=== PATIENT | female | born 1960 | race Caucasian/White ===

== ENCOUNTER 2017-05-23 00:41 | Emergency (ER) | payer OTHER ==
[~2017-05-23] VITALS: Ht 175.3 cm; Wt 75.4 kg
[~2017-05-23 00:41] MED LIST: ADDERALL30 MG PO; CYMBALTA30 MG PO; CYMBALTA60 MG PO; EFFEXOR37.5 MG PO; EPITOL200 MG PO; VALTREX50 MG/ML PO
[2017-05-23 02:08] LABS: HEMATOCRIT 42.6 % (36.0-46.0); MCH 32.5 PG (29.0-34.0); MCHC 34.7 G/DL (30.0-36.0); MCV 93.4 FL (83-99); MEAN PLAT.VOLUME 8.7 uM^3 (9.5-12.4); PLATELET COUNT 165 K/uL (156-360); RBC DIS.WIDTH-CV 12.4 % (11.8-14.6); RED BLOOD COUNT 4.56 M/uL (3.80-5.20); WHITE BLOOD COUNT 7.5 K/uL (4.1-10.2)
[2017-05-23 02:13] LABS: CHLORIDE 104 mEq/L (99-109); POTASSIUM 3.7 mEq/L (3.7-5.4); SODIUM 140 mEq/L (136-147)
[2017-05-23 02:15] LABS: GLUCOSE 92 mg/dL (70-99)
[2017-05-23 02:16] LABS: ANION GAP 14 MEQ/L (2-14)
[2017-05-23 02:18] LABS: SERUM ETHYL ALCOHOL 350 mg/dL
[2017-05-23 02:19] LABS: GFR ESTIMATE (CALCULATED) > 59 mL/min/
[2017-05-23 02:20] LABS: UREA NITROGEN (BUN) 17 mg/dL (9-23)
[2017-05-23 02:33] LABS: ADD MIUA? YES; BILIRUBIN NEGATIVE; BLOOD MODERATE; COLOR YELLOW ((YELLOW)); GLUCOSE (STRIP) NEGATIVE; KETONES 5; LEUKOCYTES TRACE; NITRITE NEGATIVE; PROTEIN (STRIP) 30; UROBILINOGEN 0.2 MG/DL (0.2-1.0)
[2017-05-23 02:42] LABS: AMPHETAMINE PRESUMPTIVE POSITIVE (500 ng/mL); BACTERIA RARE /HPF; BARBITURATES NEGATIVE (200 ng/mL); BENZODIAZEPINES NEGATIVE (150 ng/mL); COCAINE NEGATIVE (150 ng/mL); EPITHELIAL CELLS RARE /HPF; METHADONE NEGATIVE (200 ng/mL); METHAMPHETAMINE NEGATIVE (500 ng/mL); MUCUS TRACE /LPF; OPIATES (MORPHINE) NEGATIVE (100 ng/mL); OXYCODONE NEGATIVE (100 ng/mL); PHENCYCLIDINE NEGATIVE (25 ng/mL); PROPOXYPHENE NEGATIVE (300 ng/mL); THC CANNABINOIDS NEGATIVE (50 ng/mL); TRICYCLIC ANTIDEPRESSANTS NEGATIVE (300 ng/mL); UCUL ADDED? NO; WHITE BLOOD CELLS 0-5 /HPF (0-5)
[2017-05-23 02:43] LABS: ADD MEDTOX COMMENT Y; INTERNAL CONTROLS VALID? YES
[2017-05-23 04:05] VITALS: BP 132/88
== END 2017-05-23 04:16 | disposition left against medical advice (07) ==
LOC: EME 00:41
PROVIDERS: Emergency Medicine
DX: F10.129 Alcohol abuse with intoxication, unspecified (principal); F19.10 Other psychoactive substance abuse, uncomplicated; R04.0 Epistaxis; Y90.8 Blood alcohol level of 240 mg/100 ml or more; Z85.820 Personal history of malignant melanoma of skin; Z87.891 Personal history of nicotine dependence
CPT/HCPCS: 80048; 81003; 84999; 85027; 99281; 99284; G0480

== ENCOUNTER 2017-09-18 19:21 | Emergency (ER) | payer OTHER ==
[~2017-09-18] VITALS: Ht 175.3 cm; Wt 75.0 kg
[2017-09-18 20:06] LABS: HEMATOCRIT 41.3 % (36.0-46.0); HEMOGLOBIN 14.1 G/DL (11.9-15.5); MCH 32.6 PG (29.0-34.0); MCHC 34.1 G/DL (30.0-36.0); MCV 95.6 FL (83-99); PLATELET COUNT 232 K/uL (156-360); RBC DIS.WIDTH-CV 12.6 % (11.8-14.6); RBC DIS.WIDTH-SD 44.5 % (39-53); RED BLOOD COUNT 4.32 M/uL (3.80-5.20)
[2017-09-18 20:16] LABS: ALBUMIN 4.1 g/dL (3.2-4.8); CHLORIDE 109 mEq/L (99-109); POTASSIUM 4.2 mEq/L (3.7-5.4); SODIUM 143 mEq/L (136-147)
[2017-09-18 20:19] LABS: GLUCOSE 87 mg/dL (70-99); TOTAL PROTEIN 7.3 g/dL (6.4-8.3)
[2017-09-18 20:20] LABS: TOTAL BILIRUBIN 0.5 mg/dL (0.0-1.0)
[2017-09-18 20:22] LABS: ALKALINE PHOSPHATASE 87 IU/L (3-129); CREATININE 0.7 mg/dL (0.6-1.3); GFR ESTIMATE (CALCULATED) > 59 mL/min/; SERUM ETHYL ALCOHOL 367 mg/dL
[2017-09-18 20:23] LABS: UREA NITROGEN (BUN) 18 mg/dL (9-23)
[2017-09-18 20:24] LABS: AST (GOT) 43 IU/L (2-34)
[2017-09-18 20:25] LABS: ALT (GPT) 25 IU/L (3-49)
[2017-09-18 20:26] LABS: TROP-I INTERPRETATION NEGATIVE; TROPONIN-I < 0.01 ng/mL (0.0-0.30)
[2017-09-19 07:33] VITALS: BP 110/58
== END 2017-09-19 07:34 | disposition home or self-care (01) ==
LOC: EME 19:21
PROVIDERS: Emergency Medicine
DX: F10.121 Alcohol abuse with intoxication delirium (principal); Z78.1 Physical restraint status; Z87.891 Personal history of nicotine dependence; Z85.820 Personal history of malignant melanoma of skin; Z88.5 Allergy status to narcotic agent
CPT/HCPCS: 80053; 84484; 85027; 93005; 99281; 99285; G0480; J1630; J2060

== ENCOUNTER 2018-03-09 10:24 | Emergency (ER) | payer OTHER ==
[~2018-03-09] VITALS: Ht 175.3 cm; Wt 68.1 kg
[2018-03-09 10:52] LABS: HEMATOCRIT 42.5 % (36.0-46.0); HEMOGLOBIN 14.8 G/DL (11.9-15.5); MCH 33.3 PG (29.0-34.0); MCHC 34.8 G/DL (30.0-36.0); MCV 95.7 FL (83-99); PLATELET COUNT 234 K/uL (156-360); RBC DIS.WIDTH-CV 12.6 % (11.8-14.6); RBC DIS.WIDTH-SD 45.1 % (39-53); RED BLOOD COUNT 4.44 M/uL (3.80-5.20); WHITE BLOOD COUNT 11.3 K/uL (4.1-10.2)
[2018-03-09 11:01] LABS: CHLORIDE 113 mEq/L (99-109); POTASSIUM 4.2 mEq/L (3.7-5.4); SODIUM 148 mEq/L (136-147)
[2018-03-09 11:02] LABS: GLUCOSE 97 mg/dL (70-99)
[2018-03-09 11:06] LABS: CREATININE 0.7 mg/dL (0.6-1.3); GFR ESTIMATE (CALCULATED) > 59 mL/min/; SERUM ETHYL ALCOHOL 333 mg/dL
[2018-03-09 11:07] LABS: UREA NITROGEN (BUN) 15 mg/dL (9-23)
[2018-03-09 12:39] VITALS: BP 106/61
== END 2018-03-09 12:46 | disposition left against medical advice (07) ==
LOC: EME 10:24
PROVIDERS: Family Medicine
DX: S01.01XA Laceration without foreign body of scalp, initial encounter (principal); W19.XXXA Unspecified fall, initial encounter; F32.9 Major depressive disorder, single episode, unspecified; F41.9 Anxiety disorder, unspecified; F90.9 Attention-deficit hyperactivity disorder, unspecified type; Z88.5 Allergy status to narcotic agent; Z87.891 Personal history of nicotine dependence; Z85.820 Personal history of malignant melanoma of skin
CPT/HCPCS: 70450; 72125; 80048; 85027; 99281; 99284; G0480; J3010; J7040